=== PATIENT | female | born 1980 | race Caucasian/White ===

== ENCOUNTER → 2016-06-11 | Outpatient (CLI) | payer OTHER | LOC: MAMO 09:00 | DX: N60.02 Solitary cyst of left breast (principal) | CPT/HCPCS: 76641-LT; G0206 ==

== ENCOUNTER 2021-11-05 19:16 | Emergency (ER) | payer OTHER ==
[~2021-11-05 19:16] MED LIST: CARAFATE1 GM PO
== END 2021-11-05 20:00 | disposition left against medical advice (07) ==
LOC: ER1 19:16
DX: Z53.21 Procedure and treatment not carried out due to patient leaving prior to being seen by health care provider (principal)